=== PATIENT | female | born 1990 | race Caucasian/White ===

== ENCOUNTER 2016-12-29 20:06 | Inpatient (IN) | payer OTHER ==
[~2016-12-29] VITALS: Ht 170.2 cm; Wt 95.7 kg
--- NOTE | 2016-12-29 21:10 | NUR ---
PT TO ED WITH C/O "GALLBLADDER STONES". PER PT, PAIN IS RUQ OF ABD AND DESCRIBES PAIN "LIKE MY INTESTINES ARE GOING TO RUPTURE". PER PT, PT WENT TO [facility] ON MONDAY AND WAS TOLD PAIN WAS ULCER BASED ON URINE TEST AND BLOOD WORK AND DISCHARGED HOME. PT STATES TO RETURNING TO [facility] ED TODAY AM,DIAGNOSED WITH GALLSTONES AND SENT HOME. PER PT, WHEN PAIN RETURNED, PT WENT TO PCP AND WAS INTSRUCTED TO RETURN TO ED AND REQUEST AN EMERGENCY GALL BLADDER REMOVAL. PER PT, [facility] TOLD PT THE PROCEDURE IS NOT AN EMERGENCY AND NEEDS TO SCHEDULE FOR SURGERY. PT STATES TO COMING TO [facility] ED DUE TO SEVERE PAIN AND UNCONTROLLED WITH NORCO AND PREVACID. PT A&OX4,NO ACUTE DSITERSS NOTED, RESP EVEN AND UNLABORED, POSITIONED TO COMFORT, MOTHER AT PT SIDE. MSE COMPLETED BY DR HODGE AT THE BEDSIDE.
[2016-12-29 21:35] LABS: BASOPHIL % 0.2 % (0-2); PLATELET COUNT 272 x10^3mcL (130-400); RED CELL DISTRIBUTION WIDTH 13.2 % (11.5-14.5)
[2016-12-29 21:40] LABS: CALCIUM 8.3 mg/dL (8.5-10.1); CARBON DIOXIDE 30.7 mmol/L (21-32); CHLORIDE SERUM 106 mmol/L (98-107); CREATININE SERUM 0.7 mg/dL (0.6-1.0); GFR1 > 60 mL/min; GLUCOSE SERUM 104 mg/dL (74-106); POTASSIUM SERUM 3.4 mmol/L (3.5-5.1); SODIUM SERUM 144 mmol/L (136-145)
[2016-12-29 21:44] LABS: ALBUMIN 3.7 g/dL (3.4-5.0); ALKALINE PHOSPHATASE 120 U/L (46-116); ALT/SGPT 85 U/L (14-59); AMYLASE 46 U/L (25-115); AST/SGOT 53 U/L (15-37); LIPASE 100 IU/L (73-393); TOTAL PROTEIN, SERUM 7.3 g/dL (6.4-8.2)
--- NOTE | 2016-12-29 22:25 | NUR ---
PT STATES TO PAIN RETURNING AT THIS TIME TO 5/10 AND REQUESTING MORE PAIN MEDICATION.
--- NOTE | 2016-12-29 22:43 | NUR ---
PT MEDICATEDPER ORDER. SEE [facility]. PTSTATES TO HAVING CHEST PAIN WITH INCREASE IN ABD PAIN. SEE NOTES.
--- NOTE | 2016-12-30 00:42 | NUR ---
REPORT GIVEN TO ADRYAN TOBAR TO ASSUME CARE OF PT.
--- NOTE | 2016-12-30 01:04 | NUR ---
PT TRANSFERRED TO TELE BED 235B VIA GURELGIN ON CM.
[2016-12-30 01:06] VITALS: BP 112/69
--- NOTE | 2016-12-30 01:11 | NUR ---
REC'D AOX4, SPEECH CLEAR. MOTHER AT THE BEDSIDE. C/O ABD PAIN 7/10, WORSENING WITH MOVEMENT. ON RA, NO SOB NOTED. AMBULATORY WITH STEADY GAIT. IV SITE WNL. ORIENTED TO ROOM AND SURROUNDINGS. CALL LIGHT WITHIN REACH, WILL PROVIDE REPORT TO ADRYAN TOBAR FOR CONTINUITY OF CARE.
--- NOTE | 2016-12-30 01:45 | NUR ---
PT WAKE AND ALERT, MOTHER AT BEDSIDE. NO C/O PAIN THUS FAR. IV INTACT ON THE RIGHT HAND INFUSING WITH NS AT 50 ML/HR. ON TELE # 2, SINUS RHYTHYM ON THE MONITOR. MADE PT COMFORTABLE. WILL ENDORSE TO THE AM NURSE ACCORDINGLY.
--- NOTE | 2016-12-30 02:40 | NUR ---
PT C/O ABD PAIN. GAVE PT NORCO PO. PT TOLERATED IT WELL. WILL CONTINUE TO MONITOR.
--- NOTE | 2016-12-30 05:04 | NUR ---
PT C/O ABD PAIN. GAVE PT MORPHINE IVP. PT TOLERATED IT WELL. IV INTACT AND INFUSING ORDERED. WILL ENDORSE TO THE AM NURSE ACCORDINGLY.
[2016-12-30 06:13] LABS: CALCIUM 7.6 mg/dL (8.5-10.1); CHLORIDE SERUM 109 mmol/L (98-107); CREATININE SERUM 0.7 mg/dL (0.6-1.0); GFR1 > 60 mL/min; GLUCOSE SERUM 89 mg/dL (74-106); PHOSPHOROUS 2.8 mg/dL (2.5-4.9); POTASSIUM SERUM 3.6 mmol/L (3.5-5.1); SODIUM SERUM 144 mmol/L (136-145)
[2016-12-30 06:22] LABS: T3 TOTAL 0.92 ng/mL
[2016-12-30 06:36] LABS: CHOLESTEROL/HDL RATIO 3.1
--- NOTE | 2016-12-30 06:36 | NUR ---
PT C/O ABD PAIN. GAVE PT NORCO PO. PT TOLERATED IT WELL. US TECH AT BEDSIDE. PT STATED "THE PILL AND MORPHINE IS NOT REALLY WORKING.". DR. BRONSON PAGED GATED ABOUT THE PATIENTS PAIN MEDS. WILL ENDORSE TO THE AM NURSE ACCORDINGLY.
[2016-12-30 06:40] VITALS: BP 112/55
[2016-12-30 06:42] LABS: FREE THYROXINE INDEX 2.8 ug/dL (1.4-4.5); T4(THYROXINE) 8.2 ug/dL (4.7-13.3)
[2016-12-30 06:52] LABS: FREE T4 1.09 ng/dL (0.76-1.46)
--- NOTE | 2016-12-30 07:30 | NUR ---
PATIENT IS IN BED WITH MOTHER AT BEDSIDE. ALERT ORIENTED SPEECH CLEAR, ABLE TO MAKE NEEDS KNOWN. PATIENT C/O RIGHT SIDE ABD PAIN 9/10 ON THE PAIN SCALE. WILL BE MEDICATED WITH DILAUDID IV BY KANDY TOBAR ORDERED. WILL MONITOR FOR EFFECT. IVF INFUSING WELL, SITE PATENT. LUNGS CLEAR ON ROOM AIR. PATIENT INSTRUCTED ON NEED OF URINE SPECIMEN. LBM 2 DAYS AGO PER PATIENT. NO EDEMA NOTED. SCD'S IN PLACE. TELE 2 NSR. WILL CONTINUE TO MONITOR.
[2016-12-30 07:51] LABS: BASOPHIL % 0.2 % (0-2); PLATELET COUNT 232 x10^3mcL (130-400); RED CELL DISTRIBUTION WIDTH 13.6 % (11.5-14.5)
--- NOTE | 2016-12-30 08:00 | NUR ---
DR MCCARTNEY AND MEDICAL TEAM INTO SEE PATIENT AND DISCUSS PLAN OF CARE.
--- NOTE | 2016-12-30 08:15 | NUR ---
PATIENT'S PLAN OF CARE WAS DISCUSSED AND REVIEWED WITH COMPRESSED GASES TESTER:LORENZO AN
[2016-12-30 08:54] VITALS: BP 118/69
--- NOTE | 2016-12-30 09:35 | NUR ---
DR PARIS INTO SEE PATIENT AND NEW ORDER RECEIVED TO CONSENT PATIENT FOR SURGERY.
[2016-12-30 10:38] LABS: microscopic required? NO
[2016-12-30 11:00] LABS: urine erythrocyte NEGATIVE (NEGATIVE)
[2016-12-30 11:13] LABS: AMPHETAMINE QUAL UR NONE DETECTED (NEG <=1000)
[2016-12-30 12:44] VITALS: BP 114/62
--- NOTE | 2016-12-30 12:57 | NUR ---
PATIENT DOWN TO OR VIA ZACH, MOTHER ACCOMPANIED. WILL CONTIINUE TO MONITOR PATIENT UPON RETURN TO THE FLOOR.
--- NOTE | 2016-12-30 16:39 | NUR ---
PATIENT IS IN BED APPEARS TO BE RESTING WELL. MOTHER AT BEDSIDE. IVF INFUSING WELL. BANDAIDS X 4 C/D/I. SCD'S IN PLACE. WILL CONTINUE TO MONITOR.
--- NOTE | 2016-12-30 18:12 | NUR ---
PATIENT HAS BEEN OOB AND AMBULATED TO THE BATHROOM AND VOIDED. PER PATIENT SHE HAS STARTED HER MENSES AND CLAYTON PADS GIVEN TO PATIENT REQUESTED. BANDAIDS X 4 C/D/I. PATIENT SITTING UP IN BED EATING CLEAR LIQUID DIET. MOTHER AT BEDSIDE. SCD'S IN PLACE. WILL CONTINUE TO [facility].
--- NOTE | 2016-12-30 18:14 | NUR ---
PATIENT INSTRUCTED ON USE OF I.S. AND PATIENT WAS ABLE TO DO A RETURN DEMO.
--- NOTE | 2016-12-30 18:57 | NUR ---
PATIENT TOLERATED CLEAR LIQUID DIET WELL. C/O ABD PAIN 7/10 ON THE PAIN SCALE. MEDICATED WITH MS IV BY KANDY TOBAR. WILL ENDORSE TO NOC NURSE.
--- NOTE | 2016-12-30 19:13 | NUR ---
I HAVE REVIEWED THE DATA COLLECTION BY DELMIS (NAME):LORENZO AN ENTERED ON (DATE/TIME): I CONCUR WITH THE DATA AND ANY EXCEPTIONS OR COMMENTS ARE LISTED BELOW:
[2016-12-30 20:33] VITALS: BP 114/63
--- NOTE | 2016-12-30 20:46 | NUR ---
PT CURRENTLY RESTING IN BED, NO ACUTE DISTRESS. A/O X4. NO TELE, MED/SURG. DENIES CHEST PAIN. PULSES PALPABLE IN ALL EXTREMITIES, NO EDEMA NOTED. LUNG SOUNDS CTA BILATERALLY. BOWEL SOUNDS ACTIVE, LAST BM 12/28/16. VOIDING WELL. AMBULATORY. ABD BANDAID X4, CDI. PT STATES ABD PAIN 8/10, MEDICATED PER EMAR. IV PATENT AND INTACT. BED IN LOWEST POSITION, SIDE RAILS UP X2, SCDS IN PLACE, CALL LIGHT WITHIN REACH. WILL CONTINUE TO MONITOR.
--- NOTE | 2016-12-31 02:00 | NUR ---
PT CURRENTLY RESTING IN BED, NO ACUTE DISTRESS. WILL CONTINUE TO MONITOR.
[2016-12-31 05:24] VITALS: BP 119/60
--- NOTE | 2016-12-31 05:56 | NUR ---
PT TEMP 101.1, NO ACUTE DISTRESS. COOLING MEASURES TAKEN, MEDICATED PER EMAR. CURRENT TEMP 100.2. WILL ENDORSE TO ONCOMING NURSE.
--- NOTE | 2016-12-31 05:58 | NUR ---
PT SLEPT PERIODICALLY THROUHGOUT NIGHT, NO ACUTE DISTRESS. ALL NEEDS MET AND ATTENDED TO. NO SIGNIFICANT CHANGES. MEDICATED PAIN PER EMAR. IV PATENT AND INTACT. BED IN LOWEST POSITION, SIDE RAILS UP X2, SCDS IN PLACE, CALL LIGHT WITHIN REACH. WILL ENDORSE CARE TO ONCOMING NURSE.
[2016-12-31 06:44] LABS: BASOPHIL % 0.2 % (0-2); PLATELET COUNT 248 x10^3mcL (130-400); RED CELL DISTRIBUTION WIDTH 13.3 % (11.5-14.5)
[2016-12-31 06:49] LABS: ALKALINE PHOSPHATASE 134 U/L (46-116); ALT/SGPT 87 U/L (14-59); AST/SGOT 57 U/L (15-37); BILIRUBIN TOTAL 1.1 mg/dL (0.20-1.00); CALCIUM 8.3 mg/dL (8.5-10.1); CARBON DIOXIDE 25.5 mmol/L (21-32); CHLORIDE SERUM 105 mmol/L (98-107); CREATININE SERUM 0.7 mg/dL (0.6-1.0); GFR1 > 60 mL/min; GLUCOSE SERUM 90 mg/dL (74-106); POTASSIUM SERUM 3.7 mmol/L (3.5-5.1); SODIUM SERUM 140 mmol/L (136-145); TOTAL PROTEIN, SERUM 6.8 g/dL (6.4-8.2)
[2016-12-31 06:50] LABS: ALBUMIN 2.9 g/dL (3.4-5.0)
--- NOTE | 2016-12-31 08:00 | NUR ---
RECEIVED PT IN BED ALERT AND ORIENTED X4. S/P LAP RONALDO. INCISIONS X4 TO ABDOMEN WITH BANDAIDS CDI. REPORTS DISCOMFORT RATED 3/10 TO OPERATIVE SITE. DENIES N/V/D. AMBULATORY. ENCOURAGED TO AMBULATE MORE IN HALLWAYS. VERBALIZED UNDERSTANDING.
--- NOTE | 2016-12-31 09:07 | NUR ---
NORCO PO GIVEN FOR PTS COMPLAINT OF PAIN TO OPERATIVE SITE RATED 5/10. PT ABOUT TO AMBULATE IN HALLWAY WITH FAMILY.
--- NOTE | 2016-12-31 10:30 | NUR ---
PT APPEARS TO BE ASLEEP. NO SIGNS OF PAIN OR DISCOMFORT.
--- NOTE | 2016-12-31 12:31 | NUR ---
PT WOKE UP COMPLAINING OF PAIN TO OPERATIVE SITE RATED 8/10. MORPHINE 2MG IVP GIVEN.
[2016-12-31 13:07] VITALS: BP 99/55
[2016-12-31 16:48] VITALS: BP 108/59
--- NOTE | 2016-12-31 18:36 | NUR ---
NORCO PO GIVEN FOR PTS COMPLAINT OF PAIN TO OPERATIVE SITE. TEMP = 100.5. TYLENOL PO GIVEN. RECHECKED TEMP = 99.6. PT CURRENTLY AMBULATING IN HALLWAYS.
--- NOTE | 2016-12-31 20:10 | NUR ---
PT CURRENTLY RESTING IN BED, NO ACUTE DISTRESS. A/O X4. NO TELE, MED/SURG. PULSES PALPABLE IN ALL EXTREMITIES, NO EDEMA NOTED. LUNG SOUNDS CTA BILATERALLY. BOWEL SOUNDS ACTIVE, LAST BM 12/28/16. VOIDING WELL. AMBULATORY. ABD BANDAID X4, CDI. DENIES PAIN AT THIS TIME. IV PATENT AND INTACT. BED IN LOWEST POSITION, SIDE RAILS UP X2, SCDS IN PLACE, CALL LIGHT WITHIN REACH. WILL CONTINUE TO MONITOR.
[2016-12-31 21:35] VITALS: BP 100/55
--- NOTE | 2017-01-01 01:30 | NUR ---
PT CURRENTLY RESTING IN BED, NO ACUTE DISTRESS. WILL CONTINUE TO MONITOR.
[2017-01-01 05:53] VITALS: BP 112/63
--- NOTE | 2017-01-01 06:06 | NUR ---
PT SLEPT PERIODICALLY THROUGHOUT NIGHT, NO ACUTE DISTRESS. ALL NEEDS MET AND ATTENDED TO. NO SIGNIFICANT CHANGES. MEDICATED PAIN PER EMAR. IV PATENT AND INTACT. BED IN LOWEST POSITION, SIDE RAILS UP X2, SCDS IN PLACE, CALL LIGHT WITHIN REACH. WILL ENDORSE CARE TO ONCOMING NURSE.
[2017-01-01 06:55] LABS: CARBON DIOXIDE 28.3 mmol/L (21-32); CHLORIDE SERUM 104 mmol/L (98-107); CREATININE SERUM 0.6 mg/dL (0.6-1.0); GFR1 > 60 mL/min; GLUCOSE SERUM 84 mg/dL (74-106); POTASSIUM SERUM 3.3 mmol/L (3.5-5.1); SODIUM SERUM 142 mmol/L (136-145)
[2017-01-01 06:56] LABS: BASOPHIL % 0.3 % (0-2); PLATELET COUNT 232 x10^3mcL (130-400); RED CELL DISTRIBUTION WIDTH 13.4 % (11.5-14.5)
--- NOTE | 2017-01-01 07:10 | NUR ---
REASSESSMENT DONE. PT AWAKE, COOPERATIVE OF CARE. ABLE TO LET NEEDS KNOWN. S1S2 ON AUSCULTATION, DENIES CP, SOB. PT S/P RONALDO. PT DENIES N/V. PT STATES PASSING GAS. 4 INCISIONS TO ABD WALL. BANDAGES CDI. PT IS AMBULATORY, STEADY GAIT. IV INFUSING WELL TO RH NS AT 50ML/HR. BED IN LOWEST POSITION, CALL LIGHT WITHIN REACH. DMITRI CONTINUE TO MONITOR.
[2017-01-01 09:22] VITALS: BP 122/78
--- NOTE | 2017-01-01 10:25 | NUR ---
PT C/O ABD PAIN AT SURGICAL INCISION SITE 04/06. MEDICATED PER EMAR, PT TOLERATED WELL. PT TEMP: 98.1. CALL LIGHT WITHIN REACH.
--- NOTE | 2017-01-01 12:40 | NUR ---
PT AMBULATING IN HALLWAYS, STEADY GAIT. ACCOMPANIED BY FAMILY. NO DISTRESS NOTED.
[2017-01-01 12:53] VITALS: BP 106/70
[2017-01-01] MEDS ORDERED: MOT600 PO (15:11)
[2017-01-01] MEDS ORDERED: NORCO1 TA2 PO (15:11)
[2017-01-01] MEDS ORDERED: COLACE100 MG PO (15:12)
[2017-01-01] MEDS ORDERED: LAC PO (15:15)
[2017-01-01] MEDS ORDERED: KEFLEX500 M1 PO (15:15)
[2017-01-01] MEDS ORDERED: ZOF4 PO (15:17)
[2017-01-01 15:53] VITALS: BP 105/65
--- NOTE | 2017-01-01 16:15 | NUR ---
DISCHARGE INSTRUCTIONS GIVEN TO PT AND FAMILY. PT VERBALIZED UNDERSTANDING OF FOLLOW UP APPOINTMENTS. DC'D IV, CATHETER INTACT, NO PHLEBITIS. PICTURES OF ABDOMINAL INCISIONS TAKEN. PT TO BE ESCORTED OUT OF UNIT UPON READY.
== END 2017-01-01 16:41 | disposition home or self-care (01) | DRG 418 ==
LOC: ED 20:06 → DU 23:49 → MU 12-30 15:31
PROVIDERS: Emergency Medicine; Family Medicine; Surgery; ADMIT Family Medicine
PROC: 0FT44ZZ Resection of Gallbladder, Percutaneous Endoscopic Approach (ICD-10-PCS; principal; 2016-12-30 13:00)
DX: K80.00 Calculus of gallbladder with acute cholecystitis without obstruction (principal); K82.1 Hydrops of gallbladder; E44.0 Moderate protein-calorie malnutrition; E87.6 Hypokalemia; R00.0 Tachycardia, unspecified; D72.829 Elevated white blood cell count, unspecified; F43.0 Acute stress reaction; E66.9 Obesity, unspecified; Z68.33 Body mass index [BMI] 33.0-33.9, adult
CPT/HCPCS: 80307; 83880; 84439; 94150; J0330; J0696; J1170; J1885; J2250; J2270; J2405; J2550; J2704; J2710; J3010; J3490; J7030; J7120; Q0092